=== PATIENT | female | born 2000 | race Two or more races ===

== ENCOUNTER 2021-03-25 14:19 | Emergency (ER) | payer SELFPAY ==
[~2021-03-25] VITALS: Ht 160 cm; Wt 53.9 kg
[2021-03-25] MEDS ORDERED: DEXAMETHASONE 4 MG TABLET ONE (15:43)
[2021-03-25] MEDS ORDERED: cefTRIAXone IV Push 1 GM VIAL. IVP ONE (15:43)
[2021-03-25] MEDS ORDERED: DEXAMETHASONE SOD PHOS 20 MG/5 ML VIAL. IM ONE (15:45)
[2021-03-25] MEDS ORDERED: diphenhydrAMINE HCL 25 MG CAPSULE PO ONE (15:45)
[2021-03-25] MEDS ORDERED: FAMOTIDINE 20 MG TABLET. PO ONE (15:45)
[2021-03-25] MEDS ORDERED: cefTRIAXone IM 1 GM VIAL IM ONE (15:45)
[2021-03-25] MEDS ORDERED: LIDOCAINE 1% PF 2 ML VIAL. INJ ONE (15:45)
[2021-03-25] MEDS ORDERED: PRED50TA PO (15:58)
[2021-03-25] MEDS ORDERED: IBUP-1007 PO (15:58)
[2021-03-25] MEDS ORDERED: AMOX875T PO (15:58)
--- NOTE | 2021-03-25 15:58 | PHYS DOC ---
General Adult EDM: Chief Complaint: FACE PROBLEM HPI: HPI: Patient is a 20 year old female who presents the ED today complaining of facial swelling that began 3 days ago. Patient states it began as a left-sided headache described as a poking pain rated as mild, pain radiated to the left cheek with swelling. Patient denies any fever or trismus. Denies any new medications, new laundry detergents, or any other new items that she could have used that could cause the symptoms. States most of the pain is on the left cheek and upper lip. Patient is [place]amanian-speaking and interpretation is provided by enrichment teacher line. (SHARRI ALLEN APRN) Review of Systems: Review of Systems: Constitutional: Denies fever or chills. [] Eyes: Denies change in visual acuity. [] HENT: Denies nasal congestion or sore throat. [] Respiratory: Denies cough or shortness of breath. [] Cardiovascular: Denies chest pain or edema. [] GI: Denies abdominal pain, nausea, vomiting, bloody stools or diarrhea. [] : Denies dysuria. [] Musculoskeletal: Denies back pain or joint pain. [] Integument: Reports left-sided facial swelling Neurologic: Reports headache, focal weakness or sensory changes. [] Psychiatric: Denies depression or anxiety. [] (SHARRI ALLEN APRN) Heart Score: C/O Chest Pain: N/A Risk Factors: Risk Factors: DM, Current or recent (<one month) smoker, HTN, HLP, family history of CAD, obesity. Risk Scores: Score 0 - 3: 2.5% MACE over next 6 weeks - Discharge Home Score 4 - 6: 20.3% MACE over next 6 weeks - Admit for Clinical Observation Score 7 - 10: 72.7% MACE over next 6 weeks - Early Invasive Strategies (SHARRI ALLEN APRN) Current Medications: Current Medications Medications (Trade) Dose Ordered Sig/Per Start Time Stop Time Status Last Admin Dose Admin Ceftriaxone Sodium (Rocephin Im) 1 gm 1X ONCE 03/25/21 15:45 03/25/21 15:46 UNV 03/25/21 15:47 1 GM Ceftriaxone Sodium (Rocephin) 1 gm STK-MED ONCE 03/25/21 15:43 12/14/21 15:43 DC Dexamethasone (Decadron) 4 mg STK-MED ONCE 03/25/21 15:43 03/25/21 15:43 DC Dexamethasone Sodium Phosphate (Decadron) 10 mg 1X ONCE 03/25/21 15:45 03/25/21 15:46 UNV Diphenhydramine HCl (Benadryl) 25 mg 1X ONCE 03/25/21 15:45 03/25/21 15:46 UNV 03/25/21 15:47 25 MG Famotidine (Pepcid) 20 mg 1X ONCE 03/25/21 15:45 03/25/21 15:46 UNV 03/25/21 15:47 20 MG Lidocaine HCl (Xylocaine-Mpf 1% 2ml Vial) 2 ml 1X ONCE 03/25/21 15:45 03/25/21 15:46 UNV 03/25/21 15:48 2 ML (SHARRI ALLEN APRN) Physical Exam: PE: Constitutional: Well developed, well nourished, no acute distress, non-toxic appearance. [] HENT: Normocephalic, atraumatic, bilateral external ears normal, oropharynx mo ist, no oral exudates, nose normal. [] Airway is open. Left upper lip and left cheek with mild swelling, tenderness on the left cheek and left gums, erythema to the left gum Eyes: PERRLA, EOMI, conjunctiva normal, no discharge. [] Neck: Normal range of motion, no tenderness, supple, no stridor. [] Cardiovascular:Heart rate regular rhythm, no murmur [] Lungs & Thorax: Bilateral breath sounds clear to auscultation [] Abdomen: Bowel sounds normal, soft, no tenderness, no masses, no pulsatile masses. [] Skin: see ENT Back: No tenderness, no CVA tenderness. [] Extremities: No tenderness, no cyanosis, no clubbing, ROM intact, no edema. [] Neurologic: Alert and oriented X 3, normal motor function, normal sensory function, no focal deficits noted. [] Psychologic: Affect normal, judgement normal, mood normal. [] (SHARRI ALLEN APRN) EKG: EKG: [] (SHARRI ALLEN APRN) Radiology/Procedures: Radiology/Procedures: [] (SHARRI ALLEN APRN) Course & Med Decision Making: Course & Med Decision Making Pertinent Labs and Imaging studies reviewed. (See chart for details) This is a 20-year-old female patient presented to the ED today with left cheek swelling and left upper lip swelling, symptoms began 3 days ago. This appears to be a dental infection. She was given Decadron in the ED, she was also given Rocephin and sent home on amoxicillin, prednisone and ibuprofen. Follow-up with PCP and dentist in 1 week (SHARRI ALLEN APRN) Course & Med Decision Making I was attending physician during date of ER visit. AUTOMOTIVE STARTER REPAIRER independently saw and treated patient. Although I was in department managing other patients, no assistance was requested. Electronically signed, Brenda Nathan DO (BRENDA NATHAN DO) Lula Disclaimer: Lula Disclaimer: This electronic medical record was generated, in whole or in part, using a voice recognition dictation system. (SHARRI ALLEN APRN) Departure Departure Impression: Primary Impression: Dental abscess Additional Impression: Facial swelling Disposition: HOME / SELF CARE / HOMELESS Condition: STABLE Patient Instructions: Dental Abscess Additional Instructions: You have swelling to lower left side of your face consistent with a dental infection. Take the prescribed medications as ordered. Follow-up with your primary care doctor and dentist in 1 to 2 weeks Scripts Prednisone (PREDNISONE) 50 Mg Tablet 1 TAB PO DAILY, #5 TAB Prov: SHARRI ALLEN APRN 03/25/21 Ibuprofen (IBUPROFEN) 600 Mg Tablet 600 MG PO PRN Q6HRS PRN for INFLAMMATION, #20 TAB Prov: SHARRI ALLEN APRN 03/25/21 Amoxicillin (AMOXICILLIN) 875 Mg Tablet 1 TAB PO BID, #20 TAB Prov: SHARRI ALLEN APRN 03/25/21 SHARRI ALLEN APRN Mar 25, 2021 15:58 BRENDA NATHAN DO Mar 28, 2021 10:44
[2021-03-25 16:10] VITALS: BP 111/60
== END 2021-03-25 16:22 | disposition home or self-care (01) ==
LOC: ER 14:19
DX: K04.7 Periapical abscess without sinus (principal); R22.0 Localized swelling, mass and lump, head
CPT/HCPCS: 96372; 99284; J0696; J1100; J3490; Q0163